=== PATIENT | female | born 1945 | race Caucasian/White ===

== ENCOUNTER 2019-01-26 09:16 | Inpatient (IN) | payer MEDICARE ==
[~2019-01-26] VITALS: Ht 160 cm; Wt 72.6 kg
--- NOTE | ~2019-01-26 | CON ---
[address] [address] CONSULTATION Name: OKSANA WALDRON Room: [address] IN M.R.#: [id number] Admission: 01/26/19 Attend Phys: Anat Abbasi Discharge: 01/27/19 Date of : 49 Report #: [id number] THIS REPORT FOR: //name// CC: Galen Aguilar DICTATED BY: Stephanie Aranda [facility] DATE OF SERVICE: 01/27/2019 Please note at the time of this dictation, the patient was seen and physically examined by myself. REASON FOR CONSULTATION: GI bleed. HISTORY OF PRESENT ILLNESS: This is a 73-year-old female, who is known to our practice, who was last seen by myself back in March for her irritable bowel syndrome towards diarrhea. The patient states she was doing relatively well until November. In November, she had some foot surgery. In December, then she had kidney stones; therefore, she has been on some pain medication for that, also including ibuprofen 600 mg daily for the last 2 months because of this. She states she had noticed that her bowels were more solid and daily and she felt like she was fully evacuating her bowel. The patient began noticing on Wednesday evening that she started having some lower abdominal cramping, more on the left side. Then, she started having episodes of bright red bloody stool in which she probably had about 10 prior to coming in. She did have some nausea with some vomiting that was negative for any coffee-ground emesis or bright red blood. She does admit to having occasional issue with reflux and has to take Tums, maybe every couple of weeks. The last colonoscopy was in 2014, was normal. She does have a history of colon polyps back in 2010, an EGD also done at that time was completely normal. ALLERGIES: MORPHINE, VICODIN, and ULTRAM. MEDICATIONS: From home Zoloft, Fosamax, Lipitor, Robinul, Bentyl, bisoprolol fumarate, Cimzia, Benadryl, calcium, vitamin D. PAST MEDICAL HISTORY: Rheumatoid arthritis, on Cimzia; hypertension; osteoporosis; irritable bowel syndrome; history of kidney stones; and irregular heartbeat. PAST SURGICAL HISTORY: Recent right foot and leg surgery, hysterectomy, , [place] [address] CONSULTATION Name: OKSANA WALDRON Herve Room: [address]#: [id number] Admission: 01/26/19 Attend Phys: Anat Abbasi Discharge: 01/27/19 Date of : 49 Report #: [id number] FAMILY HISTORY: Noncontributory. SOCIAL HISTORY: Denies any alcohol, tobacco or illegal drug use. REVIEW OF SYSTEMS: Twelve-point review of systems is essentially negative except what is mentioned in the HPI. PHYSICAL EXAMINATION: VITAL SIGNS: Temperature 36.7, pulse 85, respirations 17, blood pressure 123/65. HEART: Regular rate and rhythm. LUNGS: Clear. ABDOMEN: Soft, positive bowel sounds in all 4 quadrants with some tenderness noted in the left lower quadrant. LABORATORY DATA: Hemoglobin on admission was 13.1, she is now 11.3; white count is 8.5; platelets 227. GFR is 40. CT of the abdomen and pelvis showed thickening at the splenic flexure, descending and sigmoid colon. IMPRESSION: 1. Gastrointestinal bleed, bright red blood. 2. Nonsteroidal anti-inflammatory drugs use, last [address] findings, likely colonic ischemia. 4. History of irritable bowel syndrome towards diarrhea. 5. History of colonic polyps. 6. History of rheumatoid arthritis and on Cimzia. PLAN: 1. Colonoscopy today with Dr. Pro. 2. Further recommendations to be made once the procedure has been performed. Thank you for allowing us to participate in this patient's care. Please do not hesitate to call with any questions in regard to this consult. ADDENDUM This is a 73-year-old female who has had 2 colonoscopies in the past. Her last colonoscopy, which was negative for any polyps, was back in 2014. She had a previous colonoscopy, which was significant for a polyp. She reports that her bowel habits are daily. She presented with bloody stool since Wednesday. She also was complaining of left lower quadrant abdominal pain. She had a CT of abdomen and pelvis, which showed some thickening in the left colon. The patient has hemoglobin of 11 and her white count is within normal range. The patient also has history of NSAID use, but denies any dyspepsia, dysphagia, GERD, hematemesis. We will perform a colonoscopy and further evaluate her lower [address] [address] CONSULTATION Name: OKSANA WALDRON Room: [address] [facility] IN M.R.#: [id number] Admission: 01/26/19 Attend Phys: Anat Abbasi Discharge: 01/27/19 Date of : 49 Report #: [id number] GI. We have a suspicion that the patient may have a colonic ischemia. Colonic ischemia risk increases by use of NSAIDs or constipation. We will make further recommendation based on findings. By: [id number] Pro MD /nt
--- NOTE | ~2019-01-26 | PROC ---
[address] [address] PROCEDURE REPORT Name: OKSANA WALDRON Room: [address] IN .R.#: [id number] Admission: 01/26/19 Attend Phys: Anat Abbasi Discharge: 01/27/19 Date of : 49 Report #: [id number] THIS REPORT FOR: //name// For GI report, please see the Provation report in Perceptive 7 content. By: [id number] Records Staff MARY /DAXA
[2019-01-26 09:27] VITALS: BP 181/82
[2019-01-26 09:55] LABS: URINE BILIRUBIN NEGATIVE (Negative); URINE BLOOD NEGATIVE (Negative); URINE CLARITY CLEAR; URINE COLOR YELLOW; URINE GLUCOSE-RANDOM NEGATIVE (Negative); URINE KETONES NEGATIVE (Negative); URINE LEUKOCYTES-REFLEX TRACE (Negative); URINE NITRITE-REFLEX NEGATIVE (Negative); URINE PROTEIN NEGATIVE (Negative); URINE SPECIFIC GRAVITY >= 1.030 (1.005-1.030); URINE UROBILINOGEN 0.2 E.U./dl (0.2-1.0)
[2019-01-26 09:59] LABS: ABSOLUTE LYMPHOCYTES 1.8 thou/uL (0.8-5.3); ABSOLUTE NEUTROPHILS 7.7 thou/uL (1.6-8.1); BASOPHILS 0.2 %; EOSINOPHILS 0.1 %; HEMATOCRIT 38.7 % (37.0-47.0); HEMOGLOBIN 13.1 gm/dL (12.0-15.0); LYMPHOCYTES 16.9 %; MCH 31.3 pg (26.0-34.0); MCHC 33.9 g/dL (28.0-37.0); MCV 92.5 fL (80.0-100.0); MONOCYTES 9.4 %; NUCLEATED RBCS 0 /100WBC; PLATELET COUNT* 319 thou/uL (150-400); POLYS 73.4 %; RBC 4.18 mil/uL (4.20-5.00); RDW-CV 12.8 % (10.5-14.5); WBC 10.5 thou/uL (4.0-11.0)
[2019-01-26 10:01] LABS: BACTERIA-REFLEX 1-9 Few /HPF (None Seen); CASTS None Seen /LPF (None Seen); CRYSTALS None Seen /LPF (None Seen); SQUAMOUS 0-3 Few /LPF (0-3); URINE RBC 0-2 Rare /HPF (0-2); URINE WBC-REFLEX 0-5 Rare /HPF (0-5)
[2019-01-26 10:05] LABS: APTT 24.7 Seconds (25.0-31.3); PROTIME 10.5 Seconds (9.20-11.50)
[2019-01-26] MEDS ORDERED: LIPITOR10 MG PO (10:08)
[2019-01-26] MEDS ORDERED: FOSAMAX 70 MG T70 MG PO (10:08)
[2019-01-26] MEDS ORDERED: SERTRALINE HCL50 MG PO (10:08)
[2019-01-26 10:16] LABS: ALBUMIN 3.6 g/dL (3.4-5.0); ALKALINE PHOSPHATASE 67 U/L (46-116); ANION GAP 11 mmol/L (7-16); BUN 32 mg/dL (7-18); CALCIUM 9.5 mg/dL (8.5-10.1); CHLORIDE 106 mmol/L (98-107); CO2 24 mmol/L (21-32); CREATININE 1.6 mg/dL (0.6-1.3); GLUCOSE 102 mg/dL (70-99); LIPASE 218 U/L (73-393); POTASSIUM 3.7 mmol/L (3.5-5.1); SGOT 20 U/L (15-37); SGPT 24 U/L (30-65); SODIUM 141 mmol/L (136-145); TOTAL BILIRUBIN 0.4 mg/dL (<0.1-1.0); TOTAL PROTEIN 7.5 g/dL (6.4-8.2); TROPONIN-I LEVEL <0.06 ng/mL (<0.06)
[2019-01-26] MEDS ORDERED: ROPINIROLE HCL0.5 MG PO (10:28)
[2019-01-26] MEDS ORDERED: BENTYL 10 MG CA10 M1 PO (10:29)
[2019-01-26] MEDS ORDERED: CYCLOSPORIN PO (10:31)
[2019-01-26] MEDS ORDERED: BISOPROLOL FUMAR5 MG PO (10:31)
[2019-01-26] MEDS ORDERED: CIMZIA400 MG (10:32)
[2019-01-26] MEDS ORDERED: CALCIUM PO (10:33)
[2019-01-26] MEDS ORDERED: DIPHENHIST50 MG PO (10:33)
[2019-01-26] MEDS ORDERED: VITAMIN D3400 UNIT PO (10:33)
[2019-01-26 14:36] VITALS: BP 151/37
--- NOTE | 2019-01-26 15:01 | EKG ---
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: Gerard PORTER : 1945 Requested By: Robert Leslie Order Number: [id number] MD: Navarro Lyle Measurements Intervals [place] Rate: 67 P: 28 W[place]: 168 QRS: -28 QRSD: 92 T: -1 QT: 401 QTc: 424 Interpretive Statements Sinus rhythm Abnormal R-wave progression, late transition Left ventricular hypertrophy Nonspecific T abnormalities, anterior leads No previous ECG available for comparison Electronically Signed On 01-26-2019 15:01:12 [employer] by Navarro Lyle [email or web address] <ELECTRONICALLY SIGNED> By: Navarro Lyle MD, [facility] 01/26/19 1501 0945 0945 Navarro Lyle MD, [facility] /EPI
[2019-01-26 15:57] VITALS: BP 134/56
[2019-01-26 16:33] VITALS: BP 137/49
[2019-01-27 03:57] LABS: ABSOLUTE EOSINOPHILS 0.1 thou/uL (0.0-0.7); ABSOLUTE LYMPHOCYTES 1.8 thou/uL (0.8-5.3); ABSOLUTE MONOCYTES 0.8 thou/uL (0.0-1.2); ABSOLUTE NEUTROPHILS 5.8 thou/uL (1.6-8.1); BASOPHILS 0.5 %; HEMATOCRIT 33.8 % (37.0-47.0); HEMOGLOBIN 11.3 gm/dL (12.0-15.0); LYMPHOCYTES 20.7 %; MCH 31.5 pg (26.0-34.0); MCHC 33.5 g/dL (28.0-37.0); MONOCYTES 9.4 %; NUCLEATED RBCS 0 /100WBC; POLYS 68.4 %; RBC 3.59 mil/uL (4.20-5.00); RDW-CV 13.1 % (10.5-14.5); WBC 8.5 thou/uL (4.0-11.0)
[2019-01-27 04:03] LABS: PLATELET COUNT* 227 thou/uL (150-400)
[2019-01-27 04:10] LABS: ALBUMIN 2.7 g/dL (3.4-5.0); CALCIUM 7.9 mg/dL (8.5-10.1); CREATININE 1.3 mg/dL (0.6-1.3); POTASSIUM 3.8 mmol/L (3.5-5.1); TOTAL BILIRUBIN 0.4 mg/dL (<0.1-1.0); TOTAL PROTEIN 5.7 g/dL (6.4-8.2)
[2019-01-27 09:02] VITALS: BP 125/65
[2019-01-27 09:04] VITALS: BP 125/65
[2019-01-27 09:31] VITALS: BP 125/65
[2019-01-27 15:20] VITALS: BP 125/65
[2019-01-27] MEDS ORDERED: CIPRO500 MG PO (15:35)
[2019-01-27] MEDS ORDERED: FLAGYL500 M1 PO (15:36)
[2019-01-27] MEDS ORDERED: IBUPROFEN 600600 M1 PO (15:38)
[2019-01-27 15:42] VITALS: BP 125/65
[2019-01-27 16:00] VITALS: BP 154/58
--- NOTE | 2019-01-31 09:09 | PATH ---
[address] [address] PATHOLOGY RPT PROCEDURE Name: OKSANA WALDRON Room: [address] IN M.R.#: [id number] Admission: 01/26/19 Date of : 49 Discharge: 01/27/19 Report #: [id number] Path Case #: [id number] [facility] Accession Number: [id number] . 01 Material submitted: . LEFT SIDED BIOPSY OF EDEMATOUS COLON . 01 Clinical history: . None provided . 02 Diagnosis: Colon, left, biopsy: - Colonic mucosa with crypt dropout, fibrin deposition, lamina propria hemorrhage, and focal acute inflammation. - See comment. 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 02 Comment: Crypt dropout, fibrin deposition, lamina propria hemorrhage, and focal acute inflammation are present in this biopsy specimen. These features while not entirely specific, can be seen in the setting of ischemic colitis. Infectious etiology is also a consideration. Clinical correlation is recommended. (MAP:[facility] [place]; 01/30/2019) . 02 Electronically signed: . Harsha Escobar MD, Pathologist NPI- [id number] . 01 Gross description: . Received in formalin labeled "Oksana Waldron, left sided biopsy of edematous colon," are 4 segments of morgan soft tissue measuring 0.9 x 0.9 x 0.2 cm in aggregate dimensions and ranging from 0.2 to 0.6 cm in maximum dimension. The specimen is submitted entirely in cassette A1. (TSD; 01/27/2019) TOB/TOB . 02 Pathologist provided ICD-10: K52.9 . 02 CPT . 067724 Specimen Comment: A courtesy copy of this report has been sent to Specimen Comment: [phone], , , . Specimen Comment: Report sent to , , Specimen Comment: and Specimen Comment: A duplicate report has been generated due to [place] [address] PATHOLOGY RPT PROCEDURE Name: OKSANA WALDRON Room: [address] IN M.R.#: [id number] Admission: 01/26/19 Date of : 49 Discharge: 01/27/19 Report #: [id number] Path Case #: [id number] updates. Performed at: 01 [facility] Dorothea Martin [address], [place] [id number] MD Dante Barnes MD Phone: [phone] Performed at: 02 [facility] [address], [place], [place] [id number] MD Blas Ayers MD Phone: [phone]
== END 2019-01-27 15:58 | disposition home or self-care (01) | DRG 377 ==
LOC: M.ERS 09:16 → M.3W 10:47 → M.TBA-ER 10:47 → M.3W 16:04
PROVIDERS: Family Medicine; ADMIT Internal Medicine
PROC: 0DBM8ZX Excision of Descending Colon, Via Natural or Artificial Opening Endoscopic, Diagnostic (ICD-10-PCS; principal; 2019-01-27)
PROC: 0DBN8ZX Excision of Sigmoid Colon, Via Natural or Artificial Opening Endoscopic, Diagnostic (ICD-10-PCS; principal; 2019-01-27)
DX: K92.2 Gastrointestinal hemorrhage, unspecified (principal); N17.0 Acute kidney failure with tubular necrosis; M06.9 Rheumatoid arthritis, unspecified; E78.5 Hyperlipidemia, unspecified; K52.9 Noninfective gastroenteritis and colitis, unspecified; M81.0 Age-related osteoporosis without current pathological fracture; K64.8 Other hemorrhoids; I10 Essential (primary) hypertension; M19.90 Unspecified osteoarthritis, unspecified site; Z90.710 Acquired absence of both cervix and uterus; Z87.442 Personal history of urinary calculi; Z88.6 Allergy status to analgesic agent; Z88.8 Allergy status to other drugs, medicaments and biological substances; Z79.1 Long term (current) use of non-steroidal anti-inflammatories (NSAID); Z86.010 Personal history of colon polyps; Z79.899 Other long term (current) drug therapy

== ENCOUNTER → 2019-03-14 | Outpatient (CLI) | payer MEDICARE ==
[~2019-03-14] MED LIST: BENTYL 10 MG CA10 M1 PO; BISOPROLOL FUMAR5 MG PO; CALCIUM PO; CIMZIA400 MG; CIPRO500 MG PO; CYCLOSPORIN PO; DIPHENHIST50 MG PO; FLAGYL500 M1 PO; FOSAMAX 70 MG T70 MG PO; IBUPROFEN 600600 M1 PO; LIPITOR10 MG PO; ROPINIROLE HCL0.5 MG PO; SERTRALINE HCL50 MG PO; VITAMIN D3400 UNIT PO
[2019-03-14 08:24] LABS: ABSOLUTE EOSINOPHILS 0.1 thou/uL (0.0-0.7); ABSOLUTE MONOCYTES 0.5 thou/uL (0.0-1.2); ABSOLUTE NEUTROPHILS 2.9 thou/uL (1.6-8.1); BASOPHILS 0.8 %; EOSINOPHILS 1.1 %; HEMOGLOBIN 11.7 gm/dL (12.0-15.0); MCH 31.4 pg (26.0-34.0); MCHC 33.6 g/dL (28.0-37.0); MCV 93.5 fL (80.0-100.0); MONOCYTES 8.6 %; MPV 7.1 fl. (7.2-11.1); NUCLEATED RBCS 0 /100WBC; PLATELET COUNT* 286 thou/uL (150-400); POLYS 53.5 %; RBC 3.74 mil/uL (4.20-5.00); RDW-CV 13.3 % (10.5-14.5); WBC 5.5 thou/uL (4.0-11.0)
[2019-03-14 08:38] LABS: ALBUMIN 3.3 g/dL (3.4-5.0); CALCIUM 9.2 mg/dL (8.5-10.1); CREATININE 1.4 mg/dL (0.6-1.3); POTASSIUM 4.1 mmol/L (3.5-5.1); TOTAL BILIRUBIN 0.4 mg/dL (<0.1-1.0); TOTAL PROTEIN 7.1 g/dL (6.4-8.2)
== END ==
LOC: M.LAB 08:00 → M.CT 09:30
PROVIDERS: Internal Medicine Gastroenterology
DX: K55.9 Vascular disorder of intestine, unspecified (principal); K76.9 Liver disease, unspecified; I51.7 Cardiomegaly; N26.1 Atrophy of kidney (terminal)

== ENCOUNTER → 2019-06-30 | Outpatient (CLI) | payer MEDICARE | LOC: M.ULTRA 07:08 | DX: N26.1 Atrophy of kidney (terminal) (principal) ==